=== PATIENT | female | born 1950 | race Caucasian/White ===

== ENCOUNTER 2016-08-17 21:24 | Inpatient (IN) | payer MEDICARE, BC ==
[~2016-08-17] VITALS: Ht 157.5 cm; Wt 146.0 kg
[~2016-08-17 21:24] MED LIST: ASA CHILDREN'S81 MG PO; AUGMENTIN 875-1 EACH PO; CALCIUM600 MG PO; CATAPRES-DPS0.1 MG PO; CIPRO DPS500 MG PO; CLINORIL DPS150 MG PO; CYMBALTA DPS60 MG PO; DELTASONE DPS10 MG PO; DULOXETINE HCL30 MG PO; FLEXERIL DPS5 MG PO; FLONASE 0.05% D16 GM NS; GLUCOSAMINE H1500 MG PO; ISOPTIN DPS120 MG PO; KEFLEX-DPS500 MG PO; LASIX DPS40 MG PO; LASIX DPS80 MG PO; LIPITOR DPS40 MG PO; LOPRESSOR DPS12.5 MG PO; LORTAB 5-325 M1 EACH PO; MAALOX DPS30 ML PO; MICRO-K DPS10 MEQ PO; MUCINEX600 MG PO; MYCOSTATIN PWD15 GM TP; NEURONTIN DPS300 MG PO; OMEPRAZOLE40 MG PO; OXYCODON-ACETA1 EAC1 PO; PROVENTIL HFA6.7 GM IH; SINGULAIR10 MG PO; SPIRIVA18 MCG IH; SURFAK DPS240 MG PO; SYMBICORT160 MCG/6 IH; THERA1 EACH PO; VESICARE10 MG PO; VESICARE5 MG PO; VITAMIN D-32000 UNI1 PO; VITAMIN E1000 UNI3 PO; WELLBUTRIN SR150 M1 PO; XARELTO20 MG PO; ZANAFLEX4 MG PO; ZESTRIL DPS5 MG PO
--- NOTE | 2016-08-18 12:33 | HP ---
ADMIT: 08/17/2016 RM/LOC: [address] [facility] MR#: [id number] 2620 [facility] [address] [place], [place] [id number] OSEAS MUÑOZ [address] [place] [address] History and Physical SEX: F AGE: 66 : 1950 DATE OF SERVICE: CHIEF COMPLAINT: Fever, and this is how I felt last time I was ill. HISTORY OF PRESENT ILLNESS: The patient is a 66-year-old female, asthma, morbid obesity, chronic diastolic heart failure, recently diagnosed atrial fibrillation, presents to [facility] Emergency Room today with complaints of just not feeling well last 2 to 3 days. She noted a little bit of lower abdominal discomfort in that her urine was a little dark and then today noted a fever of over 101 and actually contacted me by phone earlier in the day saying she just felt the same way she did when she was ill in May, and I recommended emergency room evaluation. There, she was noted to be hypotensive with urinalysis consistent with UTI, and she is admitted for further evaluation and treatment. The patient also notes a little bit of recent constipation. She thinks is probably due to her peristomal hernia. She did have a large bowel movement earlier and notes the abdominal discomfort is better after just got large bowel movement, still a small amount of lower abdominal discomfort is present. PAST MEDICAL HISTORY: 1. History of sepsis with Enterobacter urinary tract infection in May of 2016. 2. Paroxysmal atrial fibrillation. 3. Obesity hypoventilation syndrome/obstructive sleep apnea. 4. Chronic low back pain. 5. Osteoarthritis of the hips. 6. Morbid obesity. 7. Coronary artery disease. 8. History of left ventricular hypertrophy. 9. Asthma/COPD. 10.GERD. 11.History of colon cancer status post colostomy. 12.Hyperlipidemia. 13.Chronic lymphedema. 14.History of large peristomal hernia. 15.Overactive bladder. 16.Depression. 17.Atrial fibrillation, on chronic anticoagulation. CURRENT HOME MEDICATIONS: Include: 1. Multivitamin. 2. Lipitor. 3. Vitamin E. 4. Calcium. 5. Verapamil. 6. Lasix. 7. Lisinopril. 8. Singulair. 9. Flonase. ADMIT: 08/17/2016 RM/LOC: [address] [facility] MR#: [id number] [address] [address] LARISABRANNONDAVID GARCIAETTA Rui [address] [facility], [place] [address] History and Physical SEX: F AGE: 66 : 1950 10.Potassium. 11.Symbicort. 12.Mucinex. 13.VESIcare. 14.Vitamin D. 15.Albuterol. 16.Omeprazole. 17.Cymbalta. 18.Percocet. 19.Neurontin. 20.Mycostatin. 21.Wellbutrin. 22.Xarelto. 23.Spiriva. SOCIAL HISTORY: Previous smoker. She is a nondrinker, lives here in [place]. She is a retired nurse. ALLERGIES: NONE. REVIEW OF SYSTEMS: As noted above. All other systems reviewed and are negative. PHYSICAL EXAMINATION: VITAL SIGNS: Pulse is in the 60s, last blood pressure that I saw was 90/65, she is saturating 97%, and right now respirations are 16. GENERAL: This is a morbidly obese female, appears her stated age. She is in no apparent distress. She is awake. She is alert. She is oriented x3, cooperative with the examiner. HEENT: Normocephalic and atraumatic. Mucous membranes are little dry. NECK: Supple. LUNGS: Diminished at the bases bilaterally, but no wheezes, rhonchi, or rales are noted. HEART: Regular rate and rhythm. No obvious murmurs are noted at this time. ABDOMEN: Obese. She has a colostomy in place. Noted peristomal hernias reducible. She is otherwise soft, nontender, nondistended. There are no obvious CVA tenderness. Question a little bit of lower suprapubic tenderness. EXTREMITIES: She has some edema 1 to 2+ feet, ankles, and calves bilaterally. LABORATORY DATA: Her INR was 1.4. Procalcitonin was 0.24. Lactic acid was 3. Urinalysis showed 2+ blood, positive leukocyte esterase, positive nitrite, 25 white cells, many bacteria. CK of 49, MB of less than 5, troponin of 0.231. Hemoglobin was 14.1, 281,000 platelets, and white count was 11.3. Sodium 145, potassium 4.4, BUN is 27 with a creatinine of 1.3, her bicarb was 24, mag was 1.9. Chest x-ray per [employer], question is little bit lower lobe atelectasis, otherwise I do not see any other obvious airspace disease. EKG was normal sinus rhythm, [address] scan of the abdomen and pelvis showed some questionable gallbladder distention as well as ADMIT: 08/17/2016 RM/LOC: [address] [facility] MR#: [id number] [address] [place] [id number] TONI OSEAS M [address] [place] [address] History and Physical SEX: F AGE: 66 : 1950 narrow caliber bowel with slight thickening, which is scattered, also noted large periumbilical hernia with hernia sac right of the midline. ASSESSMENT AND PLAN: 1. Severe sepsis. 2. Urinary tract infection. 3. Acute kidney injury. 4. Increased troponin. 5. History of coronary artery disease. 6. Paroxysmal atrial fibrillation, on anticoagulation with Xarelto. 7. Obstructive sleep apnea/obesity hypoventilation syndrome. 8. Morbid obesity. At this point, the patient overall seems hemodynamically stable. She received aggressive IV fluid boluses. We will use Levophed if we need to keep her mean arterial pressures greater than 65. We will trend out her lactic acids. Blood cultures and urine cultures are pending. Plan on broad-spectrum antibiotics, and we will follow cultures. I do feel like she probably is prerenal. We will check urine electrolytes and renal ultrasound and recheck her creatinine in the morning. I also feel like her troponin is likely secondary to overall sepsis syndrome. With her history of coronary artery disease, we will trend those out and watch her on telemetry. We will follow her here closely in the ICU. Robin Arora MD/ ny JOB #: [id number] CC: Nazario Reaves MD, Attending Physician Nazario Reaves MD, Family Physician
--- NOTE | 2016-08-18 19:42 | ER ---
ADMIT: 08/17/2016 RM/LOC: ER [facility] MR#: [id number] [address] [place] [id number] [place], [place] [address] DAVID MUÑOZETTA Rui [address] [place] [address] Emergency Room Report SEX: F AGE: 66 : 1950 DATE: 08/17/2016 CHIEF COMPLAINT: Abdominal pain. HISTORY OF PRESENT ILLNESS: The patient is a 66-year-old female with history of Enterobacter UTI sepsis in May, states today she had lower abdominal pain associated with ostomy blowout diarrhea with improvement of pain. Denies any urinary symptoms except neurogenic bladder, but certainly no dysuria, cough, or vomiting. The patient does have recurrent peristomal hernia status post repair with mesh at the baxter. PAST MEDICAL HISTORY: ILLNESSES: CHF, coronary artery disease, hypertension, GERD, hyperlipidemia, colon cancer, status post abdominoperineal resection with ostomy, recurrent peristomal hernia with repair with mesh, UTI sepsis, seasonal allergic rhinitis, neurogenic bladder, chronic low back pain, asthma, obstructive sleep apnea with BiPAP and nocturnal O2, morbid obesity, lymphedema, chronic pain syndrome, DJD hips pending total hip arthroplasty, acute kidney injury, sepsis, and depression. OPERATIONS: Bilateral total knee arthroplasty, bilateral carpal tunnel and cubital tunnel syndrome, left oophorectomy for dermoid cyst, AP resection with ostomy with peristomal herniorrhaphy with mesh. ALLERGIES: NONE. MEDICATIONS: Please see nurse's MAR. SOCIAL HISTORY: Single, nonsmoker, nondrinker. No illicit drugs. FAMILY HISTORY: Negative per chart review. REVIEW OF SYSTEMS: A 12-point review of systems negative for all other systems, illnesses, or operations except as outlined above. PHYSICAL EXAMINATION: VITAL SIGNS: Temp 100.7, pulse 107, respirations 20, BP 126/113, SaO2 of 95%. GENERAL: Obese, nontoxic, nondiaphoretic without jaundice or icterus. HEENT: Normocephalic. No evidence of epistaxis, rhinorrhea, or otorrhea. NECK: Supple without lymphadenopathy or thyromegaly. CHEST: Clear. Breath sounds equal without rales, rhonchi, or wheeze. HEART: Tachycardic, regular without murmur, gallop, or edema. ABDOMEN: Obese, peristomal hernia right lower quadrant, panniculus with intertriginous charlene, nontender right upper quadrant. BACK: No CVA tenderness. EXTREMITIES: No evidence of Homans sign, synovitis, dermatitis. NEURO: EOMI. PERRLA. No evidence of drift, dysarthria, or ataxia. Gait not assessed. MEDICAL DECISION MAKING: The patient was brought in by wheelchair. The patient screens positive for sepsis, given fluid bolus after hypotension with ADMIT: 08/17/2016 RM/LOC: [facility] MR#: [id number] [address] [place], [place] [id number] [place] [address] Emergency Room Report SEX: F AGE: 66 : 1950 Dilaudid. WBC 11.3, lactic 3.0, CRP 3.77, creatinine 1.3. Procalcitonin 0.24, INR 1.4, lipase 64, troponin 0.231. BN peptide 307. UA; 25 wbc's, 37 rbc's, 2+ leukocyte esterase. EKG showed sinus rhythm without ST-T or Q-wave change. Chest x-ray negative. CT abdomen and pelvis showed peristomal hernia and distended gallbladder, questionable thickened bowel wall raising concern of inflammatory bowel disease, no evidence of bowel obstruction. The patient was given Tylenol, fluid bolus 30 mL/kg after hypotension from Zofran and Dilaudid for pain. The patient was covered with vancomycin and Zosyn due to prior Enterobacter UTI sepsis in May. Discussed findings with Dr. Arora, who requests ICU to call for orders. Due to the patient's presentation, findings, and intervention, 30 minutes of critical care is warranted. DIAGNOSES: 1. Septic shock associated with urinary tract infection. 2. Morbid obesity. 3. Peristomal hernia from abdominoperineal resection for colon cancer. RECOMMENDATION: Admit to inpatient ICU for Dr. Reaves. ADMISSION/DISCHARGE CONDITION: Critical. Alin Castro MD/ modl JOB #: [id number] CC: Alin Castro MD, Attending Physician Nazario Raeves MD, Family Physician
[2016-08-21] MEDS ORDERED: THERA1 EACH PO (16:53)
[2016-08-21] MEDS ORDERED: CALCIUM600 MG PO (16:54)
[2016-08-21] MEDS ORDERED: LIPITOR40 MG PO (16:54)
[2016-08-21] MEDS ORDERED: VITAMIN E400 UNIT PO (16:54)
[2016-08-21] MEDS ORDERED: ISOPTIN DPS120 MG PO (16:55)
[2016-08-21] MEDS ORDERED: FLONASE 0.05% D16 GM NS (16:55)
[2016-08-21] MEDS ORDERED: LASIX DPS40 MG PO (16:55)
[2016-08-21] MEDS ORDERED: ZESTRIL DPS5 MG PO (16:55)
[2016-08-21] MEDS ORDERED: MONTELUKAST SOD10 MG PO (16:55)
[2016-08-21] MEDS ORDERED: SYMBICORT160 MCG/6 IH (16:56)
[2016-08-21] MEDS ORDERED: MICRO-K DPS10 MEQ PO (16:56)
[2016-08-21] MEDS ORDERED: VESICARE10 MG PO (16:57)
[2016-08-21] MEDS ORDERED: VITAMIN D-32000 UNI1 PO (16:57)
[2016-08-21] MEDS ORDERED: MUCINEX600 MG PO (16:57)
[2016-08-21] MEDS ORDERED: PROVENTIL HFA6.7 GM IH (16:58)
[2016-08-21] MEDS ORDERED: CYMBALTA60 MG PO (16:58)
[2016-08-21] MEDS ORDERED: PRILOSEC DPS20 MG PO (16:58)
[2016-08-21] MEDS ORDERED: NEURONTIN DPS300 MG PO (16:59)
[2016-08-21] MEDS ORDERED: PERCOCET 7.5 DP1 TAB PO (16:59)
[2016-08-21] MEDS ORDERED: WELLBUTRIN75 MG PO (16:59)
[2016-08-21] MEDS ORDERED: MYCOSTATIN PWD15 GM TP (16:59)
[2016-08-21] MEDS ORDERED: XARELTO20 MG PO (17:00)
[2016-08-21] MEDS ORDERED: SPIRIVA18 MCG IH (17:00)
[2016-08-21] MEDS ORDERED: CIPRO DPS500 MG PO (17:01)
[2016-08-21] MEDS ORDERED: DUONEB DPS3 ML IH (17:01)
--- NOTE | 2016-09-03 08:55 | DS ---
ADMIT: 08/17/2016 RM/LOC: [address] [facility] MR#: [id number] [address] [facility] [address] [place] [id number] OSEAS MUÑOZ [address] [place] [address] Discharge Summary SEX: F AGE: 66 : 1950 ADMISSION DATE: 08/17/2016 DISCHARGE DATE: 08/20/2016 CONSULTATIONS: None. FINAL DIAGNOSES: 1. Sepsis resolved. 2. E. (Escherichia) coli UTI (urinary tract infection) resolving. 3. Acute renal failure resolved. 4. Hypotension resolved. REASON FOR ADMISSION: Please see H and P dictated by Dr. Arora, however, briefly admitted with sepsis secondary to UTI. HOSPITAL COURSE: Admitted to the service to [facility] under the care of Dr. Robin Arora. Received goal-directed therapy and appropriate interventions for sepsis. Care was transitioned to myself on August 19, 2016. We deescalated her antibiotic therapy since it did come back with E coli. Acute renal failure was resolved. Blood pressures are stable. We will slowly reinstitute her antihypertensive regimen as an outpatient. She will discharge to home. DISPOSITION: Home. DISCHARGE CONDITION: Stable. DISCHARGE MEDICATIONS: See the medication reconciliation, it is reviewed and accurate. DISCHARGE INSTRUCTIONS: She will discharge to home. She will finish 14 days of ciprofloxacin. She will follow up in my office on September 02, 2016 at 9:15 a.m. We will repeat a UA, and if this is negative we will arrange her to complete her hip injection secondary to chronic hip pain. I discussed this plan with the patient, expressed understanding, was in agreement, and had no further questions. Thirty minutes spent on discharge activities of this patient. Nazario Reaves MD/ debora JOB #: [id number] CC: Nazario Reaves MD, Attending Physician Nazario Reaves MD, Family Physician
== END 2016-08-20 11:20 | disposition home health service (06) | DRG 872 ==
LOC: ER 21:24 → 3ICU 23:25 → 5MS 08-19 12:36
PROVIDERS: ADMIT Internal Medicine
DX: A41.9 Sepsis, unspecified organism (principal); N17.9 Acute kidney failure, unspecified; I95.9 Hypotension, unspecified; I11.0 Hypertensive heart disease with heart failure; I50.32 Chronic diastolic (congestive) heart failure; I48.0 Paroxysmal atrial fibrillation; E66.2 Morbid (severe) obesity with alveolar hypoventilation; Z68.43 Body mass index [BMI] 50.0-59.9, adult; N39.0 Urinary tract infection, site not specified; B96.20 Unspecified Escherichia coli [E. coli] as the cause of diseases classified elsewhere; R65.20 Severe sepsis without septic shock; N31.9 Neuromuscular dysfunction of bladder, unspecified; I25.10 Atherosclerotic heart disease of native coronary artery without angina pectoris; K43.5 Parastomal hernia without obstruction or gangrene; K21.9 Gastro-esophageal reflux disease without esophagitis; E78.5 Hyperlipidemia, unspecified; J44.9 Chronic obstructive pulmonary disease, unspecified; J30.9 Allergic rhinitis, unspecified; M54.5 Low back pain; I89.0 Lymphedema, not elsewhere classified; G89.4 Chronic pain syndrome; M16.0 Bilateral primary osteoarthritis of hip; F32.9 Major depressive disorder, single episode, unspecified; Z96.653 Presence of artificial knee joint, bilateral; Z85.038 Personal history of other malignant neoplasm of large intestine; Z93.3 Colostomy status; Z79.01 Long term (current) use of anticoagulants; Z87.891 Personal history of nicotine dependence

== ENCOUNTER → 2016-09-10 | Outpatient (CLI) | payer MEDICARE, BC ==
[~2016-09-10] MED LIST changes: +CYMBALTA60 MG PO; +DUONEB DPS3 ML IH; +LIPITOR40 MG PO; +MONTELUKAST SOD10 MG PO; +PERCOCET 7.5 DP1 TAB PO; +PRILOSEC DPS20 MG PO; +VITAMIN E400 UNIT PO; +WELLBUTRIN75 MG PO
== END | disposition home or self-care (01) ==
LOC: RAD.S 08-19 14:00
PROC: 0S9B3ZZ Drainage of Left Hip Joint, Percutaneous Approach (ICD-10-PCS; principal; 2016-09-10)
DX: M25.552 Pain in left hip (principal)

== ENCOUNTER → 2017-01-13 | Outpatient (CLI) | payer MEDICARE, BC | END | disposition home or self-care (01) | LOC: RAD.S 12:42 | PROC: 3E0R33Z Introduction of Anti-inflammatory into Spinal Canal, Percutaneous Approach (ICD-10-PCS; principal; 2017-01-13) | DX: M48.061 Spinal stenosis, lumbar region without neurogenic claudication (principal); M54.5 Low back pain; M25.552 Pain in left hip ==